=== PATIENT | female | born 1980 | race African-American/Black ===

== ENCOUNTER → 2021-09-19 | Day surgery (SDC) | payer OTHER ==
[~2021-09-19] MED LIST: ACETAMINOPHEN 1000 MG/100 ML 100 ML IV ONE; DOCUSATE SODIU100 MG PO; FUROSEMIDE40 MG PO; GLUCAGON FOR INJ 1 MG VIAL ONE; HYOSCYAMINE SULFATE 0.5 MG/ML INJ ONE; LIDOCAINE HCL 2% LOCAL INJ 5 ML SDV VIAL INJ ONE; MAALOX MAXIMUM355 ML PO; MIDAZOLAM HCL 2 MG/2 ML VIAL ONE; OMEPRAZOLE40 MG PO; PROPOFOL IV EMULSION 10 MG/ML 20 ML VIAL ONE
[2021-09-19 11:00] VITALS: BP 128/80
== END | disposition home or self-care (01) ==
LOC: OR 08:01
PROVIDERS: ATTEND Internal Medicine Gastroenterology
DX: K59.09 Other constipation (principal); K62.1 Rectal polyp; K29.70 Gastritis, unspecified, without bleeding; K29.80 Duodenitis without bleeding; K20.90 Esophagitis, unspecified without bleeding; K44.9 Diaphragmatic hernia without obstruction or gangrene; K21.9 Gastro-esophageal reflux disease without esophagitis; K64.8 Other hemorrhoids; G47.33 Obstructive sleep apnea (adult) (pediatric); I10 Essential (primary) hypertension; E66.01 Morbid (severe) obesity due to excess calories; M19.90 Unspecified osteoarthritis, unspecified site; G43.909 Migraine, unspecified, not intractable, without status migrainosus; J45.909 Unspecified asthma, uncomplicated; R07.9 Chest pain, unspecified; D57.3 Sickle-cell trait; F41.9 Anxiety disorder, unspecified; Z88.6 Allergy status to analgesic agent; Z88.1 Allergy status to other antibiotic agents; Z88.0 Allergy status to penicillin; Z01.810 Encounter for preprocedural cardiovascular examination; Z01.812 Encounter for preprocedural laboratory examination; Z20.822 Contact with and (suspected) exposure to COVID-19; Z79.899 Other long term (current) drug therapy; Z68.43 Body mass index [BMI] 50.0-59.9, adult; Z80.0 Family history of malignant neoplasm of digestive organs
CPT/HCPCS: 43239; 45378; 93005; J1610; J1980; J2001; J2250; U0002